=== PATIENT | female | born 1995 | race Caucasian/White ===

== ENCOUNTER → 2021-01-10 | Outpatient (CLI) | payer OTHER, SELFPAY ==
[2021-01-10 09:13] VITALS: BMI 29.9
[2021-01-11 20:07] LABS: Chlamydia By Nucleic Acid AMP Negative (Negative)
[2021-01-12 12:38] LABS: Gonococcus By Nucleic Acid AMP Negative (Negative)
[2021-01-12 16:47] LABS: HPV Reflexed? NOT INDICATED
== END | disposition home or self-care (01) ==
LOC: LABSPEC 13:03
PROVIDERS: Referring Provider Nurse Practitioner Women's Health; Visit Provider Nurse Practitioner Women's Health
DX: Z12.4 Encounter for screening for malignant neoplasm of cervix (principal); Z11.3 Encounter for screening for infections with a predominantly sexual mode of transmission
CPT/HCPCS: 87491; 87591; 88175; G0145

== ENCOUNTER → 2021-01-28 07:03 | Outpatient (CLI) | payer OTHER, SELFPAY ==
[2021-01-10 09:13] VITALS: BMI 29.9
[2021-02-01 15:54] LABS: Testosterone Free 10.4 pg/mL (0.0-4.2)
== END ==
PROVIDERS: Referring Provider Nurse Practitioner Women's Health; Visit Provider Nurse Practitioner Women's Health
DX: N97.0 Female infertility associated with anovulation (principal); Z13.29 Encounter for screening for other suspected endocrine disorder
CPT/HCPCS: 36415; 82627; 84402; 84443; 82626

== ENCOUNTER → 2021-04-23 08:06 | Outpatient (CLI) | payer OTHER, SELFPAY ==
[2021-04-23 09:09] LABS: Progesterone Level 0.69 ng/mL (See Comment)
== END ==
PROVIDERS: Referring Provider Nurse Practitioner Women's Health; Visit Provider Nurse Practitioner Women's Health
DX: N92.6 Irregular menstruation, unspecified (principal)
CPT/HCPCS: 36415; 84144

== ENCOUNTER → 2021-06-06 06:25 | Outpatient (CLI) | payer OTHER, SELFPAY ==
[2021-06-06 09:00] LABS: Progesterone Level 8.76 ng/mL (See Comment)
== END ==
LOC: LAB 06:27
PROVIDERS: PCP Family Medicine; Referring Provider Nurse Practitioner Women's Health; Visit Provider Nurse Practitioner Women's Health
DX: N97.0 Female infertility associated with anovulation (principal)
CPT/HCPCS: 36415; 84144

== ENCOUNTER 2021-09-30 07:06 | Emergency (ER) | payer OTHER, SELFPAY ==
[2021-09-30 07:07] VITALS: BP 145/97; PULSE 108; RESP 16; TEMP 36.6; O2SAT 99; BMI 27.4
--- NOTE | 2021-09-30 07:23 | EX.ED.DYSGE1 ---
HPI History of Present Illness Chief Complaint: Nausea/Vomiting Narrative Narrative: Patient with past medical history of hypothyroidism, presents with nausea and diarrhea, feels dehydrated. She states that she is nauseated but has not vomited. She had a few episodes of diarrhea without any blood in it yesterday. She is a G1, P0 at approximately 8 weeks by home test. She is taking vitamins and has an appointment with an REPACK ROOM WORKER next week. She denies any abdominal pain. No vaginal bleeding. No fevers or chills. No other symptoms. PFSH PFSH Medical History Hypothyroidism Irregular menses Home Medications levothyroxine 100 mcg tablet 100 mcg PO DAILY 01/10/21 [History Last Taken Unknown] albuterol sulfate 90 mcg/actuation aerosol inhaler 1 puff INHALATION ONCE 09/22/21 [History Last Taken Unknown] prenat.vits,sarita,irf-muiq-zvylx 1 tab PO DAILY 09/22/21 [History Last Taken Unknown] cephalexin 500 mg PO Q12 #14 cap 09/30/21 [Rx Last Taken Unknown] ondansetron 4 mg PO Q8H PRN #10 tab 09/30/21 [Rx Last Taken Unknown] Allergy/AdvReac Type Severity Reaction Status Date / Time No Known Allergies Allergy Verified 09/30/21 07:09 Family History Grandfather Heart disease Grandmother Heart disease Surgical History H/O resection of small bowel S/P tonsillectomy Social History household members: spouse current occupational status: employed current occupation: [employer] pets and animals: Yes pets and animals: dog(s) history of recent travel: No sexually active: Yes Smoking Status: Never smoker alcohol intake: current alcohol intake frequency: a few times a month details: not while substance use type: does not use what type of physical activity do you participate in: none seatbelt use: always do you feel safe at home: Yes additional social history: - Frantz ROS ROS ED ROS Narrative Constitutional: No fever, no chills. HEENT: No sore throat. No neck pain. No loss of vision. No rhinorrhea. Cardiovascular: No chest pain. No palpitations. No pedal edema. Respiratory: No cough, no shortness of breath. Abdominal: No abdominal pain. Positive nausea. No vomiting. Positive loose stool/diarrhea Genitourinary: No dysuria. No hematuria. Musculoskeletal: No myalgias. No arthralgias. Neurologic: No headaches. No dizziness. No lightheadedness. Generalized weakness. Skin: No rash. No change in color. Psychiatric: No depression. No anxiety. EXAM Physical Exam Narrative Exam Narrative: Afebrile. Vital signs noted. HEENT: Normocephalic. Atraumatic. PERRL, EOMI. Neck soft and supple. No point tenderness or step off. Moist mucous membranes. Cardiovascular: Regular rate and rhythm with intermittent tachycardia. No murmurs, rubs, or gallops appreciated. Respiratory: No tachypnea. Lungs clear to auscultation bilaterally. Gastrointestinal: Abdomen soft, nontender, with normoactive bowel sounds. No rebound or guarding. Neurological: Awake. Alert. Nonfocal, nonlateralizing. Skin: No rash. Normal color. No pallor. Musculoskeletal: No pedal edema. Full range of motion extremities. Const Vital Signs: 09/30/21 07:07 Temperature 98 F Temperature Source Temporal Pulse Rate 108 H Respiratory Rate 16 Blood Pressure 145/97 H Blood Pressure Mean 113 Pulse Ox 99 Oxygen Delivery Method Room Air MDM MDM MDM Narrative Medical decision making narrative: Patient was administered IV fluids and Zofran. She is intermittently tachycardic. I will also check a UA. Her urinalysis shows WBCs 25-50 with 1+ bacteria, but negative nitrites. I do feel given her with asymptomatic bacteria that she should be treated with antibiotics. She was written a prescription for Keflex for the next week. There are no ketones in her urine. After Zofran and approximately 500 mL of IV fluid, she states she is feeling improved. At this point in time, the rest of her fluids will be administered. She states she has a follow-up appointment with her REPACK ROOM WORKER next week. I advised her to keep this appointment. She was also given a prescription for 10 Zofran tablets. She will start a clear liquid diet and advance as tolerated. Return instructions to the emergency department were reviewed. Disposition is discharged home in stable condition. Lab Data Attestation: I reviewed the patient's lab results. Labs: Laboratory Results - last 24 hr 09/30/21 07:47 Urine Color Yellow Urine Clarity Clear Urine pH 7.0 Ur Specific [place] 1.005 Urine Protein Negative Urine Glucose (UA) Normal Urine Ketones Negative Urine Occult Blood Negative Urine Nitrite Negative Urine Bilirubin Negative Urine Urobilinogen Normal Ur Leukocyte Esterase 500 H Urine RBC 0 SEEN Urine WBC 25-50 SEEN Ur Squamous Epith Cells 0-5 SEEN Urine Bacteria 1+ Urine Mucus 0 SEEN Discharge Plan Triage Chief Complaint: Nausea/Vomiting ED Provider: Alex Cisneros Dx/Rx/DC Orders Clinical Impression: Nausea in adult, , Asymptomatic bacteriuria during Instructions: Nausea Vomit Control, : Common Questions Prescriptions: New ondansetron 4 mg tablet,disintegrating 4 mg PO Q8H PRN (Reason: nausea and vomiting) Qty: 10 RF: 0 cephalexin 500 mg capsule 500 mg PO Q12 Qty: 14 RF: 0 No Action levothyroxine [Synthroid] 100 mcg tablet 100 mcg PO DAILY RF: 0 prenat.vits,sarita,bdc-[id number] Tablet 1 tab PO DAILY RF: 0 albuterol sulfate [ProAir HFA] 90 mcg/actuation HFA aerosol inhaler 1 puff inhalation ONCE RF: 0 Primary Care Provider: Darby Sanchez Referrals: Darby Sanchez MD [Primary Care Provider] - Tonya Spencer MD [STAFF PHYSICIAN] - 10/06/21 (Keep your scheduled appointment with OBGYN) Disposition Disposition: Home, Self Care
[2021-09-30] MEDS: Ondansetron 4 MG/2 ML Vial IV (07:44)
[2021-09-30] MEDS: 0.9% Normal Saline 1,000 ML 999 ML IV (07:44)
[2021-09-30 07:50] LABS: Mucous, Urine 0 SEEN /hpf (<or=2+); Red Blood Cells-Urine 0 SEEN /hpf (0-5)
[2021-09-30 08:00] LABS: Color, Urine Yellow (Yellow); Glucose, Dipstick Normal (Normal); Ketone-Dipstick Negative (Negative); Leukocyte Esterase-Dipstick 500 /ul (Negative); Nitrite-Dipstick Negative (Negative); Occult Blood-Urine Negative /ul (Negative); Protein-Dipstick Negative (Negative); Specific Gravity, Urine 1.005 (1.002-1.030); Urine Bilirubin Dipstick Negative (Negative); Urine Clarity Clear (Clear); Urine Urobilinogen Normal (Normal)
[2021-09-30 08:06] LABS: Bacteria 1+ /hpf (None Seen); Squamous Epithelial Cells - UA 0-5 SEEN /hpf (5-10); White Blood Cells 25-50 SEEN /hpf (0-5)
[2021-09-30 08:44] VITALS: BP 118/64; PULSE 73; RESP 15; O2SAT 98
== END 2021-09-30 08:47 | disposition home or self-care (01) ==
PROVIDERS: Emergency Provider Emergency Medicine; PCP Family Medicine; Visit Provider Emergency Medicine
DX: O99.891 Other specified diseases and conditions complicating pregnancy (principal); O99.281 Endocrine, nutritional and metabolic diseases complicating pregnancy, first trimester; R11.0 Nausea; R82.71 Bacteriuria; E03.9 Hypothyroidism, unspecified; Z3A.08 8 weeks gestation of pregnancy; Z79.899 Other long term (current) drug therapy
CPT/HCPCS: 81001; 96361; 96374; 99283; J7030; J2405

== ENCOUNTER 2021-10-06 12:58 | Outpatient (CLI) | payer OTHER, SELFPAY ==
[2021-10-06 13:33] LABS: Amphetamine Urine VISTA NEGATIVE (<1000 ng/mL); Barbiturate Urine VISTA NEGATIVE (< 200 ng/mL); Benzodiazepine Urine VISTA NEGATIVE (< 200 ng/mL); Cocaine Urine VISTA NEGATIVE (< 300 ng/mL); Ecstacy Urine VISTA NEGATIVE (< 500 ng/mL); Methadone Urine VISTA NEGATIVE (< 300 ng/mL); PCP Urine VISTA NEGATIVE (< 25 ng/mL); THC Urine VISTA NEGATIVE (< 50 ng/mL); Vista UDS pH Range 7
[2021-10-10 01:06] LABS: Chlamydia By Nucleic Acid AMP Negative (Negative)
[2021-10-10 09:54] LABS: Gonococcus By Nucleic Acid AMP Negative (Negative)
[2021-10-11 12:25] LABS: HPV Reflexed? NOT INDICATED
== END 2021-10-06 23:59 | disposition short-term general hospital (02) ==
PROVIDERS: PCP Family Medicine; Visit Provider Obstetrics & Gynecology
DX: Z34.90 Encounter for supervision of normal pregnancy, unspecified, unspecified trimester (principal)
CPT/HCPCS: 80307; 87086; 87088; 87491; 87591; 88175; G0145

== ENCOUNTER 2021-10-12 06:04 | Outpatient (CLI) | payer OTHER, SELFPAY ==
[2021-10-12 07:04] LABS: Absolute Lymphocyte Count 2.15 X10^3/uL (0.83-4.51); Absolute Neutrophil Count 3.7 X10^3/uL (2.0-7.7); Basophil# 0.03 X10^3/uL; Basophil% 0.5 % (0-1); Eosinophil# 0.12 X10^3/uL; Eosinophils% 1.9 % (0-5); Hematocrit 36.2 % (37-47); Hemoglobin 12.9 g/dL (12.0-15.0); Lymphocyte # 2.15 X10^3/ul (0.83-4.51); Lymphocyte % 33.9 % (19-41); Mean Corp Hgb Conc 35.6 g/dL (32-36); Mean Corpuscular Hgb 31.3 pg (27.0-32.0); Mean Corpuscular Volume 87.9 fL (81-99); Mean Platelet Vol. 8.6 fl (6.2-12.0); Monocyte# 0.29 X10^3/uL; Monocyte% 4.6 % (0-10); NRBC Flagged by Analyzer 0 % (0-5); Neutrophil # 3.74 X10^3/uL (2.7-7.7); Neutrophil % 58.8 % (47-70); Platelet Count 296 K/mm3 (150-450); RBC Distribution Width SD 38.8 fl (35.1-43.9); Red Blood Count 4.12 M/mm3 (4.2-5.4); White Blood Count 6.4 K/mm3 (4.4-11.0)
[2021-10-12 07:11] LABS: NATERA MAILED SPECIMEN
[2021-10-12 10:44] LABS: HIV - WCH Non-Reactive (Nonreactive); Hepatitis B Surface Antigen Non-Reactive (Nonreactive); Hepatitis C Antibody Non-Reactive (Nonreactive); Rubella IgG Reactive (Nonreactive); Syphilis Antibodies Non-reactive
== END 2021-10-12 23:59 | disposition home or self-care (01) ==
LOC: LAB 06:05
PROVIDERS: PCP Family Medicine; Referring Provider Obstetrics & Gynecology; Visit Provider Obstetrics & Gynecology
DX: Z34.81 Encounter for supervision of other normal pregnancy, first trimester (principal)
CPT/HCPCS: 36415; 85025; 86703; 86762; 86780; 86803; 86850; 86900; 86901; 87340

== ENCOUNTER 2021-12-01 10:21 | Outpatient (CLI) | payer OTHER, SELFPAY ==
[2021-12-01 11:08] LABS: Thyroid Stim Hormone (TSH) 1.86 uIU/mL (0.358-3.74)
== END 2021-12-01 23:59 | disposition home or self-care (01) ==
LOC: PAVLAB 10:21
PROVIDERS: PCP Family Medicine; Referring Provider Obstetrics & Gynecology; Visit Provider Obstetrics & Gynecology
DX: E03.9 Hypothyroidism, unspecified (principal)
CPT/HCPCS: 36415; 84443

== ENCOUNTER → 2022-01-26 | Outpatient (CLI) | payer OTHER, SELFPAY ==
[2022-01-26 08:35] LABS: Absolute Lymphocyte Count 1.51 X10^3/uL (0.83-4.51); Absolute Neutrophil Count 5.5 X10^3/uL (2.0-7.7); Basophil# 0.02 X10^3/uL; Basophil% 0.3 % (0-1); Eosinophil# 0.09 X10^3/uL; Eosinophils% 1.2 % (0-5); Hematocrit 34.2 % (37-47); Hemoglobin 11.6 g/dL (12.0-15.0); Lymphocyte # 1.51 X10^3/ul (0.83-4.51); Lymphocyte % 20.4 % (19-41); Mean Corp Hgb Conc 33.9 g/dL (32-36); Mean Corpuscular Hgb 30.9 pg (27.0-32.0); Mean Corpuscular Volume 91.2 fL (81-99); Monocyte# 0.25 X10^3/uL; Monocyte% 3.4 % (0-10); NRBC Flagged by Analyzer 0 % (0-5); Neutrophil # 5.46 X10^3/uL (2.7-7.7); Neutrophil % 73.8 % (47-70); Platelet Count 249 K/mm3 (150-450); RBC Distribution Width CV 13.1 % (11.6-14.6); RBC Distribution Width SD 43.4 fl (35.1-43.9); Red Blood Count 3.75 M/mm3 (4.2-5.4); White Blood Count 7.4 K/mm3 (4.4-11.0)
[2022-01-26 09:11] LABS: Glucose Challenge Gest 1H 50g 160 mg/dL (70-140); Thyroid Stim Hormone (TSH) 2.68 uIU/mL (0.358-3.74)
== END | disposition home or self-care (01) ==
LOC: PAVLAB 08:07
PROVIDERS: PCP Family Medicine; Referring Provider Obstetrics & Gynecology; Visit Provider Obstetrics & Gynecology
DX: Z34.92 Encounter for supervision of normal pregnancy, unspecified, second trimester (principal); Z3A.21 21 weeks gestation of pregnancy
CPT/HCPCS: 36415; 82950; 84443; 85025

== ENCOUNTER 2022-01-31 06:55 | Outpatient (CLI) | payer OTHER, SELFPAY ==
[2022-01-31 09:08] LABS: Glucose GTT-Gestation. Fasting 81 mg/dL (<105)
[2022-01-31 09:28] LABS: Glucose GTT-Gestational 1 Hr 161 mg/dL (<190)
[2022-01-31 11:10] LABS: Glucose GTT-Gestational 3 Hr 139 L (<145)
[2022-01-31 11:14] LABS: Glucose GTT-Gestational 2 Hr 168 mg/dL (<165)
== END 2022-01-31 23:59 | disposition home or self-care (01) ==
LOC: LAB 06:55
PROVIDERS: PCP Family Medicine; Referring Provider Obstetrics & Gynecology; Visit Provider Obstetrics & Gynecology
DX: Z34.80 Encounter for supervision of other normal pregnancy, unspecified trimester (principal)
CPT/HCPCS: 36415; 82951; 82952

== ENCOUNTER 2022-02-21 10:15 | Outpatient (RCR) | payer OTHER, SELFPAY | END 2022-03-02 23:59 | LOC: DC 10:15 | PROVIDERS: PCP Family Medicine; Referring Provider Obstetrics & Gynecology; Visit Provider Obstetrics & Gynecology | DX: O99.810 Abnormal glucose complicating pregnancy (principal); Z3A.00 Weeks of gestation of pregnancy not specified | CPT/HCPCS: 97802 ==

== ENCOUNTER 2022-03-08 10:14 | Outpatient (RCR) | payer OTHER, SELFPAY | END 2022-04-02 23:59 | LOC: DC 10:14 | PROVIDERS: PCP Family Medicine; Referring Provider Obstetrics & Gynecology; Visit Provider Obstetrics & Gynecology | DX: O99.810 Abnormal glucose complicating pregnancy (principal); Z3A.00 Weeks of gestation of pregnancy not specified | CPT/HCPCS: 97803 ==

== ENCOUNTER → 2022-03-16 | Outpatient (CLI) | payer OTHER, SELFPAY ==
[2022-03-16 09:57] LABS: Thyroid Stim Hormone (TSH) 1.99 uIU/mL (0.358-3.74)
== END | disposition home or self-care (01) ==
LOC: PAVLAB 09:16
PROVIDERS: PCP Family Medicine; Referring Provider Nurse Practitioner Women's Health; Visit Provider Nurse Practitioner Women's Health
DX: Z13.29 Encounter for screening for other suspected endocrine disorder (principal)
CPT/HCPCS: 36415; 84443

== ENCOUNTER 2022-03-19 21:28 | Outpatient (CLI) | payer OTHER, SELFPAY ==
[2022-03-19 21:44] VITALS: TEMP 37.1; BMI 33.2
[2022-03-19 21:47] VITALS: BP 132/82; PULSE 95
[2022-03-19 21:52] VITALS: BP 128/76; PULSE 80
[2022-03-19 21:57] VITALS: BP 122/74; PULSE 88
--- NOTE | 2022-03-19 22:03 | OB.TRI.HP_ITS ---
HPI - General General Date of Admission: 03/19/22 Date of Service: 03/19/22 Chief Complaint: right leg swelling HPI Narrative BAYLEE PEREZ, is a 26 y/o @ 32 weeks 4 days who presents to L&D with right leg that is slightly swollen compared to left. She denies calf tenderness or redness. She denies shortness of breath or chest pain. Maternal Data Information RADHA Calculator Estimated Delivery Date Method Current WG Current Estimate 05/10/22 LMP (Certain) 32w 5d Other Estimates 05/10/22 Ultrasound #1 32w 5d PFSH PFSH Medical History Hypothyroidism Irregular menses Home Medications levothyroxine 100 mcg tablet (Synthroid) 100 mcg PO DAILY 01/10/21 [History Last Taken Unknown] albuterol sulfate 90 mcg/actuation aerosol inhaler (ProAir HFA) 1 puff inhalation ONCE 09/22/21 [History Last Taken Unknown] prenat.vits,sarita,pde-jzoy-kgzcm 1 tab PO DAILY 09/22/21 [History Last Taken Unknown] Allergy/AdvReac Type Severity Reaction Status Date / Time No Known Allergies Allergy Verified 03/16/22 09:03 Family History Grandfather Heart disease Grandmother Heart disease Surgical History H/O resection of small bowel S/P tonsillectomy Social History household members: spouse current occupational status: employed current occupation: [employer] pets and animals: Yes pets and animals: dog(s) history of recent travel: No sexually active: Yes Smoking Status: Never smoker alcohol intake: current alcohol intake frequency: a few times a month details: not while substance use type: does not use what type of physical activity do you participate in: none seatbelt use: always do you feel safe at home: Yes additional social history: - Frantz History 1 Elective abortions Hx Para Spontaneous abortions Hx # Term Pregnancies Ectopic pregnancies Hx # Pregnancies Multiple births # of living children Visit Details Expected Delivery Route/Plan Labor Preferences- CB/BF classes: enc labor support person: Frantz labor intervention preferences: [] pain management options preferred: epidural cut cord/dad catch: cord : pump and feed PP control planned: discussed discussed possible routes of delivery and associated risks: [] special requests: [] Plans Covid status: counseled regarding risk of covid in vs vaccination and declined vaccination Flu vaccine: counseled Tdap vaccine:given Rhogam: na LARC form signed: declined movement and labor precautions reviewed. Problem list reviewed and updated with the most current plan of care details and appropriate orders placed. Relevant counseling for the gestational age provided. Continue routine care and follow up unless otherwise noted in visit notes/problem list details OB Flowsheet Initial Weight: Not Recorded Date -?-?-?-?-?-?-?-?-?-?-?-?- EGA Weight BP Urine Prot -?-?-?-?-?-?-?-?-?-?-?-?- Glucose FHR FuHt Pres Dilation -?-?-?-?-?-?-?-?-?-?-?-?- Effaced St Visit Note 10/06/21 -?-?-?-?-?-?-?-?-?-?-?-?- 9w 1d 144/88 144/88 -?-?-?-?-?-?-?-?-?-?-?-?- 180 -?-?-?-?-?-?-?-?-?-?-?-?- SM- CRL 2 cm con s with LMP 11/03/21 -?-?-?-?-?-?-?-?-?-?-?-?- 13w 1d 163 lb 127/82 Negative -?-?-?-?-?-?-?-?-?-?-?-?- Negative 160 -?-?-?-?-?-?-?-?-?-?-?-?- JV- ultrasound r eassuring today. No complaints. q trimester TSH levels. order in. 12/01/21 -?-?-?-?-?-?-?-?-?-?-?-?- 17w 1d 163 lb 6 oz 138/86 Nega tive -?-?-?-?-?-?-?-?-?-?-?-?- Negative 150 -?-?-?-?-?-?-?-?-?-?-?-?- SM- no vb lof cr maping reviewed labs check thyroid today 12/29/21 -?-?-?-?-?-?-?-?-?-?-?-?- 21w 1d 169 lb 130/82 -?-?-?-?-?-?-?-?-?-?-?-?- 150 21 -?-?-?-?-?-?-?-?-?-?-?-?- SM- no vb lof go od fm no regular ctx 01/26/22 -?-?-?-?-?-?-?-?-?-?-?-?- 25w 1d 173 lb 114/80 -?-?-?-?-?-?-?-?-?-?-?-?- 150 25 -?-?-?-?-?-?-?-?-?-?-?-?- Sm- no vb lof go od fm n oregular ctx ordered 3 hr gtt 02/16/22 -?-?-?-?-?-?-?-?-?-?-?-?- 28w 1d 175 lb 6 oz 130/70 Nega tive -?-?-?-?-?-?-?-?-?-?-?-?- Negative 151 28 -?-?-?-?-?-?-?-?-?-?-?-?- JV- pt passed 3 hr but only by one point. Encouraging a healthy diet and will still order nutrition consult to discuss one time or as needed to aid in healthy choices. 03/02/22 -?-?-?-?-?-?-?-?--?-?-?-?- 30w 1d 176 lb 118/72 Negative -?-?-?-?-?-?-?-?-?-?-?-?- Negative 130 31 -?-?-?-?-?-?-?-?-?-?-?-?- SM- no vb lof go od fm no regular ctx baby shower next weekend! larc signed 03/16/22 -?-?-?-?-?-?-?-?-?-?-?-?- 32w 1d 180 lb 6 oz 126/70 Nega tive -?-?-?-?-?-?-?-?-?-?-?-?- Negative 156 32 -?-?-?-?-?-?-?-?-?-?-?-?- MH-NO VB, LOF. G ood FM. TSh today ROS Constitutional Constitutional: Reports systems reviewed and no addt'l complaints, except as documented Gastrointestinal Gastrointestinal: Denies bloating, constipation, cramping, diarrhea, nausea or vomiting Genitourinary Genitourinary: Reports other Details: Denies vaginal odor, vaginal bleeding, or vaginal discharge ; Denies difficulty urinating or flank pain Physical Exam HEENT normocephalic Resp normal respiratory effort and normal air movement no CVA tenderness Extremity normal to inspection General Extremity: edema bilateral (trace ) NST FHR Rate Baby A Baseline: 120 Variability:: Moderate Accelerations:: 15 x 15 Decelerations:: None NST Reactive:: Yes FHR Category:: Category I Assessment & Plan (1) Abnormal glucose affecting : COMMENT: passed3 hour gtt- but only by 1 point. consulting nutrition to help make healthy choices. (2) Hypothyroidism: COMMENT: synthroid. dr holland manages. tsh q trimester, nl TSH 03/16 (3) Asthma: COMMENT: albuterol PRN. mild intermittent (4) : QUALIFIERS: Weeks of gestation: 30 weeks Qualified Code(s): Z3A.30 - 30 weeks gestation of COMMENT: Carrier screen neg at [facility] for pt and spouse. nlNIPT. declined afp. 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 if still swollen or tender in the am,. she is to call the office for us to order outpatient doppler study. Charges/Coding Multi Select Codes Visit Charges Office Visit/Consults: 93751 OV L3 Est Urinary/Genital Urinary/Genital CPT Codes: 96870-42 non-stress test Interp
== END 2022-03-19 22:25 | disposition home or self-care (01) ==
LOC: WPOUT 21:33 → WP 21:34
PROVIDERS: PCP Family Medicine; Referring Provider Obstetrics & Gynecology; Visit Provider Obstetrics & Gynecology
DX: O99.283 Endocrine, nutritional and metabolic diseases complicating pregnancy, third trimester (principal); O99.513 Diseases of the respiratory system complicating pregnancy, third trimester; M79.89 Other specified soft tissue disorders; E03.9 Hypothyroidism, unspecified; J45.909 Unspecified asthma, uncomplicated; Z3A.30 30 weeks gestation of pregnancy
CPT/HCPCS: 59025; 59050; 99218; G0378

== ENCOUNTER → 2022-04-13 | Outpatient (CLI) | payer OTHER, SELFPAY | END | disposition home or self-care (01) | LOC: LABSPEC 04-18 06:49 | PROVIDERS: PCP Family Medicine; Referring Provider Obstetrics & Gynecology; Visit Provider Obstetrics & Gynecology | DX: O99.810 Abnormal glucose complicating pregnancy (principal); Z3A.00 Weeks of gestation of pregnancy not specified | CPT/HCPCS: 87077; 87081; 87186 ==

== ENCOUNTER 2022-04-27 11:15 | Inpatient (IN) | payer OTHER, SELFPAY ==
[2022-04-27] VITALS (10 sets, daily range): BP systolic 125–158; BP diastolic 77–96; PULSE 90–102; TEMP 37.1–37.6; BMI 34.0
[2022-04-27 09:53] LABS: Absolute Lymphocyte Count 1.47 X10^3/uL (0.83-4.51); Absolute Neutrophil Count 5.7 X10^3/uL (2.0-7.7); Basophil# 0.02 X10^3/uL; Basophil% 0.3 % (0-1); Eosinophil# 0.05 X10^3/uL; Eosinophils% 0.7 % (0-5); Hematocrit 36.4 % (37-47); Hemoglobin 12.6 g/dL (12.0-15.0); Lymphocyte # 1.47 X10^3/ul (0.83-4.51); Lymphocyte % 19.1 % (19-41); Mean Corp Hgb Conc 34.6 g/dL (32-36); Mean Corpuscular Hgb 31.5 pg (27.0-32.0); Mean Platelet Vol. 9.9 fl (6.2-12.0); Monocyte# 0.42 X10^3/uL; Monocyte% 5.5 % (0-10); NRBC Flagged by Analyzer 0 % (0-5); Neutrophil # 5.67 X10^3/uL (2.7-7.7); Neutrophil % 73.7 % (47-70); Platelet Count 228 K/mm3 (150-450); RBC Distribution Width CV 13.6 % (11.6-14.6); RBC Distribution Width SD 45.3 fl (35.1-43.9); White Blood Count 7.7 K/mm3 (4.4-11.0)
[2022-04-27 10:04] LABS: Protein, Urine (Random) 14.5 mg/dL (<11.9); Protein:Creat Ratio 157 mg/g CRE (0-200)
[2022-04-27 10:14] LABS: ALB/GLOB Ratio 0.7 RATIO (0.9-2.4); AST(SGOT) 10 U/L (15-37); Alanine Aminotransfer ALT/SGPT 17 U/L (13-56); Albumin, Serum 2.5 g/dL (3.2-5.0); Alkaline Phosphatase 116 U/L (45-117); Anion Gap 8 (5-15); BUN 8 mg/dL (7-18); BUN/Creat Ratio 14.6 RATIO (10-20); Calcium,Total 8.9 mg/dL (8.5-10.1); Chloride 108 mmol/L (98-107); Creatinine, Serum 0.55 mg/dL (0.55-1.02); EST Glomerular Filtration Rate 141 mL/min (>60); Est Glom Filt Rate - Afr Amer 171 mL/min (>60); Estimated Creatinine Clearance 121.52 ml/min; Globulin 3.7 g/dL (2.2-4.2); Glucose 91 mg/dL (74-106); Protein, Total 6.2 g/dL (6.4-8.2); Sodium Level 138 mmol/L (136-145)
[2022-04-27] MEDS: Lactated Ringers 1,000 ML 50 ML IV ×2 (12:40→22:27)
[2022-04-27] MEDS: miSOPROStol 25 MCG TABLET VAGINAL ×3 (14:20→23:22)
--- NOTE | 2022-04-27 17:08 | HP.PCM.OB_ITS ---
HPI - General General Date of Admission: 04/27/22 HPI Narrative BAYLEE PEREZ, is a 26 F who presentsfor elevated bps and upon further evaluation bps are WNL but a prolonged decel with a contraction occured upon evaluation so decision to keep her was made Maternal Data Information RADHA Calculator Estimated Delivery Date Method Current WG Current Estimate 05/10/22 LMP (Certain) 38w 1d Other Estimates 05/10/22 Ultrasound #1 38w 1d PFS PFS Medical History (Updated 04/27/22 @ 13:49 by Brielle Moffett) Anxiety Headache History of blood transfusion Hypothyroidism Irregular menses Home Medications levothyroxine 100 mcg tablet (Synthroid) 112 mcg PO DAILY 01/10/21 [History Last Taken Unknown] albuterol sulfate 90 mcg/actuation aerosol inhaler (ProAir HFA) 1 puff inhalation ONCE 09/22/21 [History Last Taken Unknown] prenat.vits,sarita,mam-agva-qhhgk 1 tab PO DAILY 09/22/21 [History Last Taken Unknown] Allergy/AdvReac Type Severity Reaction Status Date / Time No Known Allergies Allergy Verified 04/27/22 08:51 Family History Grandfather Heart disease Grandmother Heart disease Surgical History H/O resection of small bowel S/P tonsillectomy Social History household members: spouse current occupational status: employed current occupation: [employer] pets and animals: Yes pets and animals: dog(s) history of recent travel: No sexually active: Yes Smoking Status: Never smoker alcohol intake: current alcohol intake frequency: a few times a month details: not while substance use type: does not use what type of physical activity do you participate in: none seatbelt use: always do you feel safe at home: Yes additional social history: - Frantz History 1 Elective abortions Hx Para Spontaneous abortions Hx # Term Pregnancies Ectopic pregnancies Hx # Pregnancies Multiple births # of living children Visit Details Expected Delivery Route/Plan Labor Preferences- CB/BF classes: enc labor support person: Frantz labor intervention preferences: [] pain management options preferred: epidural cut cord/dad catch: cord : pump and feed PP control planned: discussed discussed possible routes of delivery and associated risks: [] special requests: [] Plans Covid status: counseled regarding risk of covid in vs vaccination and declined vaccination Flu vaccine: counseled Tdap vaccine:given Rhogam: na LARC form signed: declined movement and labor precautions reviewed. Problem list reviewed and updated with the most current plan of care details and appropriate orders placed. Relevant counseling for the gestational age provided. Continue routine care and follow up unless otherwise noted in visit notes/problem list details OB Flowsheet Initial Weight: Not Recorded Date -?-?-?-?-?-?-?-?-?-?-?-?- EGA Weight BP Urine Prot -?-?-?-?-?-?-?-?-?-?-?-?- Glucose FHR FuHt Pres Dilation -?-?-?-?-?-?-?-?-?-?-?-?- Effaced St Visit Note 10/06/21 -?-?-?-?-?-?-?-?-?-?-?-?- 9w 1d 144/88 144/88 -?-?-?-?-?-?-?-?-?-?-?-?- 180 -?-?-?-?-?-?-?-?-?-?-?-?- SM- CRL 2 cm con s with LMP 11/03/21 -?-?-?-?-?-?-?-?-?-?-?-?- 13w 1d 163 lb 127/82 Negative -?-?-?-?-?-?-?-?-?-?-?-?- Negative 160 -?-?-?-?-?-?-?-?-?-?-?-?- JV- ultrasound r eassuring today. No complaints. q trimester TSH levels. order in. 12/01/21 -?-?-?-?-?-?-?--?-?-?-?-?- 17w 1d 163 lb 6 oz 138/86 Nega tive -?-?-?-?-?-?-?-?-?-?-?-?- Negative 150 -?-?-?-?-?-?-?-?-?-?-?-?- SM- no vb lof cr maping reviewed labs check thyroid today 12/29/21 -?-?-?-?-?-?-?-?-?-?-?-?- 21w 1d 169 lb 130/82 -?-?-?-?-?-?-?-?-?-?-?-?- 150 21 -?-?-?-?-?-?-?-?-?-?-?--?- SM- no vb lof go od fm no regular ctx 01/26/22 -?-?-?-?-?-?-?-?-?-?-?-?- 25w 1d 173 lb 114/80 -?-?-?-?-?-?-?-?-?-?-?-?- 150 25 -?-?-?-?-?-?-?-?-?-?-?-?- Sm- no vb lof go od fm n oregular ctx ordered 3 hr gtt 02/16/22 -?-?-?-?-?-?-?-?-?-?-?-?- 28w 1d 175 lb 6 oz 130/70 Nega tive -?-?-?-?-?-?-?-?-?-?-?-?- Negative 151 28 -?-?-?-?-?-?-?-?-?-?-?-?- JV- pt passed 3 hr but only by one point. Encouraging a healthy diet and will still order nutrition consult to discuss one time or as needed to aid in healthy choices. 03/02/22 -?-?-?-?-?-?-?-?-?-?-?-?- 30w 1d 176 lb 118/72 Negative -?-?-?-?-?-?-?-?-?--?-?-?- Negative 130 31 -?-?-?-?-?-?-?-?-?-?-?-?- SM- no vb lof go od fm no regular ctx baby shower next weekend! larc signed 03/16/22 -?-?-?-?--?-?-?-?-?-?-?-?- 32w 1d 180 lb 6 oz 126/70 Nega tive -?-?-?-?-?-?-?-?-?-?-?-?- Negative 156 32 -?-?-?-?-?-?-?-?-?-?-?-?- MH-NO VB, LOF. G ood FM. TSh today 03/30/22 -?-?-?-?-?-?-?-?-?-?-?-?- 34w 1d 181 lb 8 oz 126/84 Nega tive -?-?-?-?-?-?-?-?-?-?-?-?- Negative 141 35 -?-?-?-?-?--?-?-?-?-?-?-?- JV- JV-no lof, v aginal bleeding , or dec fm. no complaints. 04/13/22 -?-?-?-?-?-?-?-?-?-?-?-?- 36w 1d 187 lb 118/62 Negative -?-?-?--?-?-?-?-?-?-?-?-?- Negative 140 36 Cephalic 0 .5 -?-?-?-?-?-?-?-?-?-?-?-?- SM- no vb lof go od fm no regular ctx gbs done 04/20/22 -?-?-?-?-?-?-?-?-?-?-?-?- 37w 1d 186 lb 110/62 Negative -?-?-?-?-?-?-?-?-?-?-?-?- Negative 150 37 Cephalic 0 .5 -?-?-?-?-?-?-?-?-?-?-?-?- Sm- no vb lof go od fm no regular ctx 04/27/22 -?-?-?-?-?-?-?-?-?-?-?-?- 38w 1d 188 lb 6 oz 140/80 Nega tive -?-?-?-?-?-?-?-?-?-?-?-?- Negative 155 38 Cephalic 0 .5 -?-?-?-?-?-?-?-?-?-?-?-?- -3 JV- bp's 140's-160's/80's90's. no symptoms 04/27/22 -?-?-?-?-?-?-?-?-?-?-?-?- 38w 1d 186 lb 132/80 130/86 125/82 127/80 128/80 142/91 -?-?-?-?-?-?-?-?-?-?-?-?- -?-?-?-?-?-?-?-?-?-?-?-?- NST FHR Rate Baby A Baseline: 130 Variability:: Moderate Accelerations:: 15 x 15 Decelerations:: Prolonged (initially then good recovery and now no decels) NST Reactive:: Yes FHR Category:: Category I Uterine Activity:: irregular ROS Constitutional Constitutional: Reports systems reviewed and no addt'l complaints, except as documented Eyes Eyes: Denies change in vision ENT HEENT: Reports systems reviewed and no addt'l complaints, except as documented; Denies headache(s) Cardiovascular Cardiovascular: Reports systems reviewed and no addt'l complaints, except as documented; Denies chest pain or dyspnea Respiratory/Chest Respiratory/Chest: Reports systems reviewed and no addt'l complaints, except as documented Gastrointestinal Gastrointestinal: Reports systems reviewed and no addt'l complaints, except as documented; Denies abdominal pain Genitourinary Genitourinary: Reports systems reviewed and no addt'l complaints, except as documented, contractions Details: present (irregular) and movement Details: present; Denies dysuria or genital lesions Musculoskeletal Musculoskeletal: Reports systems reviewed and no addt'l complaints, except as documented Neurologic Neurologic: Reports systems reviewed and no addt'l complaints, except as documented Endocrine Endocrinology: Reports systems reviewed and no addt'l complaints, except as doc umented Vital Signs Vital Signs Vital Signs: 04/27/22 09:53 04/27/22 09:53 04/27/22 10:09 Temperature Temperature Source Pulse Rate 102 H Blood Pressure 132/80 H 130/86 H BP Systolic 132 130 BP Diastolic 80 86 04/27/22 10:09 04/27/22 09:49 04/27/22 09:49 Temperature 98.8 F Temperature Source Temporal Pulse Rate 90 Blood Pressure BP Systolic BP Diastolic 04/27/22 10:23 04/27/22 10:23 04/27/22 10:38 Temperature Temperature Source Pulse Rate 92 Blood Pressure 125/82 H 127/80 H BP Systolic 125 127 BP Diastolic 82 80 04/27/22 10:38 04/27/22 10:53 04/27/22 10:53 Temperature Temperature Source Pulse Rate 92 93 Blood Pressure 128/80 H BP Systolic 128 BP Diastolic 80 04/27/22 13:42 04/27/22 13:42 04/27/22 13:41 Temperature Temperature Source Temporal Pulse Rate 93 Blood Pressure 142/91 H BP Systolic 142 BP Diastolic 91 04/27/22 13:41 Temperature 99.7 F H Temperature Source Pulse Rate Blood Pressure BP Systolic BP Diastolic Weight Weight: 186 lb Body Mass Index (BMI) 34.0 Physical Exam Const alert, oriented x3, no apparent distress and healthy appearing HEENT normocephalic and moist oral mucous membranes Head and Scalp: atraumatic Neck full ROM, no lymphadenopathy, supple and thyroid normal General: trachea midline Lymph Lymphatic: no lymphadenopathy noted Chest inspection of chest normal Resp normal respiratory effort Cardio regular rate GI normal to inspection, nondistended, normoactive bowel sounds, soft to palpation and non-tender Inspection: gravid external exam normal Manual OB Exam: estimated gestational size appropriate, presentation cephalic, dilated, effaced and station Extremity normal to inspection General Extremity: Negative for edema Skin no rashes or lesions noted Neuro no focal motor deficits and deep tendon reflexes 2+ bilaterally Motor Exam: strength 5/5 throughout and clonus absent Psych mental status grossly normal Labs Labs Labs: Blood Type O POSITIVE Antibody Screen NEGATIVE Hct 36.4 % (37-47) L Hgb 12.6 g/dL (12.0-15.0) Syphilis Total Ab Non-reactive Rubella IgG Antibody Reactive (Nonreactive) Hep Bs Antigen Non-Reactive (Nonreactive) Chlamydia DNA ([facility]) Negative (Negative) Neisseria gonorrhoeae DNA ([facility]) Negative (Negative) HIV 1&2 Antibody Non-Reactive (Nonreactive) Glucose 1 Hr 50 gm 160 mg/dL (70-140) H Miscellaneous Test Assessment & Plan (1) Positive GBS test: COMMENT: PCN at delivery (2) Abnormal glucose affecting : COMMENT: passed3 hour gtt- but only by 1 point. consulting nutrition to help make healthy choices. (3) Hypothyroidism: COMMENT: synthroid. dr holland manages. tsh q trimester, nl TSH 03/16 (4) Asthma: COMMENT: albuterol PRN. mild intermittent (5) : QUALIFIERS: Weeks of gestation: 38 weeks Qualified Code(s): Z3A.38 - 38 weeks gestation of COMMENT: Carrier screen neg at [facility] for pt and spouse. nlNIPT. declined afp. 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 GBS positive plan IV PCN. Management of any complications: none I have reviewed the [facility] and made any clinically relevant updates.
[2022-04-27] MEDS: LACTATED RINGERS 500 ML 999 ML IV (22:28)
[2022-04-28] VITALS (44 sets, daily range): BP systolic 115–159; BP diastolic 63–94; PULSE 73–107; TEMP 36.6–37.2; O2SAT 81–99
[2022-04-28] MEDS: miSOPROStol 25 MCG TABLET VAGINAL (03:37)
[2022-04-28] MEDS: 0.9% Normal Saline Single 100 ML IV.SOLN. INTRA-UTER (09:08)
[2022-04-28] MEDS: Oxytocin 30 units/NS 500 ml 30 UNITS/500 ML IV.SOLN IV (09:18)
--- NOTE | 2022-04-28 11:39 | PCM.PN.BLA ---
Progress Note fb pit after cytotec overnight doing well, epi PRN. arom PRN cat i tracing but some decels overnight
[2022-04-28] MEDS: LACTATED RINGERS 500 ML 999 ML IV ×2 (12:53→21:02)
[2022-04-28] MEDS: fentaNYL-bupivacaine (epidural) 100 ML BAG EPIDURAL ×2 (13:41→18:20)
[2022-04-28] MEDS: Penicillin G 3,000,000 Units 50 ML 100 UNITS IV ×2 (15:08→19:34)
[2022-04-28] MEDS: Lactated Ringers 1,000 ML 200 ML IV ×2 (15:45→21:22)
[2022-04-28] MEDS: Ondansetron 4 MG/2 ML Vial IV (17:19)
[2022-04-28] MEDS: Acetaminophen 500 MG Tablet PO (17:20)
[2022-04-28] MEDS: 0.9% Saline Lock 10 ML Syringe IV (17:20)
--- NOTE | 2022-04-28 21:29 | OP.PCM_ITS ---
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 nlNIPT. declined afp. anatomy nl (4) Asthma: COMMENT: albuterol PRN. mild intermittent (5) Hypothyroidism: COMMENT: synthroid. dr holland manages. tsh q trimester, nl TSH 03/16 (6) Abnormal glucose affecting : COMMENT: passed3 hour gtt- but only by 1 point. consulting nutrition to help make healthy choices. (7) Positive GBS test: COMMENT: PCN at delivery (8) Prolonged heart deceleration: COMMENT: plan IOL Maternal Data Information RADHA Calculator Estimated Delivery Date Method Current WG Current Estimate 05/10/22 LMP (Certain) 38w 2d Other Estimates 05/10/22 Ultrasound #1 38w 2d Vaginal Delivery Operative Information Date of Procedure: 04/28/22 Pre-Operative Diagnosis: IOL decel Post-Operative Diagnosis: same Surgery / Procedure Performed: Spontaneous Vaginal Delivery Type of Anesthesia: Epidural Special Medications: none Estimated Blood Loss: 300 Fluids Replaced: crystalloid Findings Description of Procedure: Patient began pushing and delivered the head in the TITUS presentation. The head was delivered atraumatically and a loose nuchal cord ?1 was identified and the infant delivered through without complication. The anterior and posterior shoulders delivered without complication followed by the rest of the infant and the was placed on the maternal abdomen. Delayed cord clamping was employed for approximately 60 seconds. Cord was clamped and cut and gentle traction was applied to the cord and the placenta delivered spontaneously immediately following it was noted to be intact with three-vessel cord. The perineum and vagina were inspected and noted to have a second degree laceration repaired in the usual fashion with 3-0 rapide. EBL was 300. Patient and infant tolerated delivery well. Presentation: TITUS Amniotic Membrane Rupture Type: Spontaneous Amniotic Fluid Description: Clear Placental Delivery Description: Spontaneous Placenta Disposition: [facility] Cord Vessel Description: 3 Vessels Cord Entanglement: None Delayed Cord Clamping: Yes Post Vaginal Delivery Medications Given After Delivery: IV Pitocin Episiotomy Description: None Laceration: Perineal Extension/lac and 2nd degree Complication Complications: None Procedures Urinary/Genital [id number]: [id number] Vaginal Delivery [facility]
--- NOTE | 2022-04-28 21:30 | DCINST_ITS ---
Discharge Instructions Diet Discharge Diet: No restrictions Activity Discharge Activity: Return to Normal Activity, May Drive, May Shower and May Take a Tub Bath (in 4 weeks) May resume sexual activity in: 6-8 weeks (after seen by OB provider) Weight Bearing Status: Full weight bearing Lifting Restrictions: none Dressing / Incision Call your doctor if you observe: Fever of 101 or Higher, Inability to urinate, Using more than 1 pad per hour (for more than 2 hours in a row or more), Shortness of breath, Dizziness, Chest pain and - (headache not controlled with tylenol, change in vision) Follow Up Care When: in 6 weeks for visit, call the office to make the appointment. If you had elevated blood pressures call the office to be seen within 1 week. Test Results: Test results from this visit will be discussed in further detail at your follow- up appointment, if applicable. Discharge Plan Admission Admit Date/Time: 04/27/22 11:15 Attending Provider: Tonya Spencer Primary Care Provider: Darby Sanchez Discharge Orders/Prescriptions Prescriptions: No Action levothyroxine [Synthroid] 100 mcg tablet 112 mcg PO DAILY prenat.vits,sarita,[id number] Tablet 1 tab PO DAILY albuterol sulfate [ProAir HFA] 90 mcg/actuation HFA aerosol inhaler 1 puff inhalation ONCE Referrals / Follow Up: Darby Sanchez MD [Primary Care Provider] - Disposition Disposition (needs filled in before D/C Order can be placed): Home, Self Care
[2022-04-28] MEDS: Oxytocin 30 units/NS 500 ml 30 UNITS/500 ML IV.SOLN 334 UNITS IV (23:01)
[2022-04-29] VITALS (31 sets, daily range): BP systolic 118–150; BP diastolic 65–94; PULSE 73–105; RESP 14–17; TEMP 36.4–37.2; O2SAT 94–99
[2022-04-29] MEDS: Naproxen 500 MG Tablet PO ×3 (00:25→23:28)
[2022-04-29] MEDS: Levothyroxine 112 MCG Tablet PO (08:54)
[2022-04-29] MEDS: Senna/Docusate Sodium 1 Tablet PO (08:54)
--- NOTE | 2022-04-29 09:40 | PCM.PN.OB ---
Subjective Subjective Patient doing well without complaints. Tolerating PO. Ambulating and voiding without difficulty. feeding well. Denies chest pain, shortness of breath, calf pain/swelling, fevers, chills, lightheadedness. Objective Data Objective Data Vital Signs: Vital Signs Temp Pulse Resp BP Pulse Ox O2 Del Method 97.5 F L 77 16 136/89 H 97 Room Air 04/29/22 09:24 04/29/22 09:24 04/29/22 09:24 04/29/22 09:24 04/29/22 09:24 04/29/22 09:24 Oxygen Delivery Method Room Air Weight: 186 lb Body Mass Index (BMI) 34.0 Intake & Output: Intake and Output for Last 24 Hours 04/27/22 04/28/22 04/29/22 23:59 23:59 23:59 Intake Total 54.17 / 54.17 5345.60 / 5345.60 331.22 / 331.22 Output Total 2300 / 2300 1100 / 1100 Balance 54.17 / 54.17 3045.60 / 3045.60 -768.78 / -768.78 Lab / Micro Data Result Diagrams: 04/27/22 09:40 04/27/22 09:40 Micro: Microbiology 04/27/22 17:08 Nasal Secretion SARS-CoV-2 Antigen (Rapid) - Final ROS Constitutional Constitutional: Reports systems reviewed and no addt'l complaints, except as documented Cardiovascular Cardiovascular: Reports systems reviewed and no addt'l complaints, except as documented Respiratory/Chest Respiratory/Chest: Reports systems reviewed and no addt'l complaints, except as documented Gastrointestinal Gastrointestinal: Reports systems reviewed and no addt'l complaints, except as documented Physical Exam Const alert, oriented x3 and no apparent distress HEENT Head and Scalp: atraumatic Resp normal respiratory effort GI soft to palpation and non-tender Bimanual Exam - Vag & Uterus: uterus non-tender Uterus Palpation: uterus fundus firm (below Umbilicus) Assessment & Plan (1) Vaginal delivery: COMMENT: SM boy 38 iol decel (2) Asthma: COMMENT: albuterol PRN. mild intermittent (3) Hypothyroidism: COMMENT: synthroid. dr holland manages. tsh q trimester, nl TSH 03/16 PLAN: Plan s/p PPD # 1 1. routine post delivery care 2. breast feeding- support given 3. rh positive 4. rubella immune
--- NOTE | 2022-04-30 03:52 | PCM.PN.OB ---
Subjective Subjective Patient doing well without complaints. Tolerating PO. Ambulating and voiding without difficulty. feeding well. Denies chest pain, shortness of breath, calf pain/swelling, fevers, chills, lightheadedness. Objective Data Objective Data Vital Signs: Vital Signs Temp Pulse Resp BP Pulse Ox O2 Del Method 98 F 90 16 123/78 H 97 Room Air 04/29/22 23:18 04/29/22 23:18 04/29/22 23:18 04/29/22 23:18 04/29/22 23:18 04/29/22 23:18 Oxygen Delivery Method Room Air Weight: 186 lb Body Mass Index (BMI) 34.0 Intake & Output: Intake and Output for Last 24 Hours 04/28/22 04/29/22 04/30/22 23:59 23:59 23:59 Intake Total 5345.60 / 5345.60 331.22 / 331.22 Output Total 2300 / 2300 1600 / 1600 Balance 3045.60 / 3045.60 -1268.78 / -1268.78 Lab / Micro Data Result Diagrams: 04/27/22 09:40 04/27/22 09:40 Micro: Microbiology 04/27/22 17:08 Nasal Secretion SARS-CoV-2 Antigen (Rapid) - Final ROS Constitutional Constitutional: Reports systems reviewed and no addt'l complaints, except as documented Cardiovascular Cardiovascular: Reports systems reviewed and no addt'l complaints, except as documented Respiratory/Chest Respiratory/Chest: Reports systems reviewed and no addt'l complaints, except as documented Gastrointestinal Gastrointestinal: Reports systems reviewed and no addt'l complaints, except as documented Physical Exam Const alert, oriented x3 and no apparent distress HEENT Head and Scalp: atraumatic Resp normal respiratory effort GI soft to palpation and non-tender Bimanual Exam - Vag & Uterus: uterus non-tender Uterus Palpation: uterus fundus firm (below Umbilicus) Assessment & Plan (1) Vaginal delivery: COMMENT: SM boy 38 iol decel (2) Asthma: COMMENT: albuterol PRN. mild intermittent (3) Hypothyroidism: COMMENT: synthroid. dr holland manages. tsh q trimester, nl TSH 03/16 PLAN: Plan s/p PPD # 2 1. routine post delivery care 2. breast feeding- support given 3. rh positive 4. rubella immune
[2022-04-30 04:21] VITALS: BP 116/69; PULSE 73; RESP 14; TEMP 36.3; O2SAT 95
[2022-04-30 07:44] VITALS: BP 120/78; PULSE 69; RESP 18; TEMP 36.6; O2SAT 97
--- NOTE | 2022-05-04 21:51 | PCM.DC.SUM ---
Providers Date of Admission: 04/27/22 Primary Care Physician: Dr. Darby Sanchez MD Reason For Visit: VAGINAL DELIVERY Diagnosis Discharge Diagnosis (1) Vaginal delivery: Status: Acute Code(s): O80 - Encounter for full-term uncomplicated delivery (2) Asthma: Status: Acute Code(s): J45.909 - Unspecified asthma, uncomplicated (3) Hypothyroidism: Status: Acute Code(s): E03.9 - Hypothyroidism, unspecified Plan s/p PPD # 2 1. routine post delivery care 2. breast feeding- support given 3. rh positive 4. rubella immune Medications at Discharge Home Medications levothyroxine 100 mcg tablet (Synthroid) 112 mcg PO DAILY 01/10/21 albuterol sulfate 90 mcg/actuation aerosol inhaler (ProAir HFA) 1 puff inhalation ONCE 09/22/21 prenat.vits,sarita,bny-xcrg-cmxlr 1 tab PO DAILY 09/22/21 Hospital Course Summary of Care Provided Hospital Course: prsented for IOL secondary to decel and proceeded to deliver vaginally without complication had a routine recovery and stable for discharge to home ppd 2 Weight / BMI Weight Weight: 186 lb Body Mass Index (BMI) 34.0 ABG / Lab / Microbiology Data Result Diagrams: 04/27/22 09:40 04/27/22 09:40 Microbiology: Microbiology 04/27/22 17:08 Nasal Secretion SARS-CoV-2 Antigen (Rapid) - Final D/C Instructions Discharge Diet: No restrictions Discharge Activity: May Not Drive (for 2 weeks or while taking narcotic pain medications.), May Shower and May Take a Tub Bath (in 7 days) May shower in (days): 0 May resume sexual activity in: 6-8 weeks (after seen by OB provider) Weight Bearing Status: Full weight bearing Call your doctor if your incision/area has: Continuous Slow Oozing, Sudden Increased Bleeding, Increased Pain/ Swelling, Increased Redness and Foul Smelling Discharge Call your doctor if you observe: Fever of 101 or Higher, Inability to urinate, Using more than 1 pad per hour (for more than 2 hours in a row or more), Shortness of breath, Dizziness, Chest pain and - (headache not controlled with tylenol, change in vision) Suture Line Care: Avoid Pulling/Pushing and Avoid Pinching/Bending Please Follow Up With: Tonya Spencer MD When: in 6 weeks for visit, call the office to make the appointment. If you had elevated blood pressures call the office to be seen within 1 week. Meaningful Use Info Meaningful Use Diagnoses (Choose all that apply): None applicable Discharge Plan Admission Admit Date/Time: 04/27/22 11:15 Attending Provider: Tonya Spencer Primary Care Provider: Darby Sanchez Discharge Orders/Prescriptions Prescriptions: No Action levothyroxine [Synthroid] 100 mcg tablet 112 mcg PO DAILY prenat.vits,sarita,[id number] Tablet 1 tab PO DAILY albuterol sulfate [ProAir HFA] 90 mcg/actuation HFA aerosol inhaler 1 puff inhalation ONCE Referrals / Follow Up: Darby Sanchez MD [Primary Care Provider] - Disposition Disposition (needs filled in before D/C Order can be placed): Home, Self Care
== END 2022-04-30 09:45 | disposition home or self-care (01) | DRG 807 ==
LOC: WPOUT 11:16 → WP 11:18
PROVIDERS: Obstetrics & Gynecology; Admitting Provider Obstetrics & Gynecology; PCP Family Medicine; Referring Provider Obstetrics & Gynecology; Visit Provider Obstetrics & Gynecology
DX: O76 Abnormality in fetal heart rate and rhythm complicating labor and delivery (principal); Z37.0 Single live birth; E03.9 Hypothyroidism, unspecified; J45.909 Unspecified asthma, uncomplicated; O99.52 Diseases of the respiratory system complicating childbirth; O70.1 Second degree perineal laceration during delivery; O99.284 Endocrine, nutritional and metabolic diseases complicating childbirth; O69.81X0 Labor and delivery complicated by cord around neck, without compression, not applicable or unspecified; O99.824 Streptococcus B carrier state complicating childbirth; Z3A.38 38 weeks gestation of pregnancy
CPT/HCPCS: 59025; 59050; 80053; 82570; 84156; 85025; 86850; 86900; 86901; 87811; 99218; J7120; A4216; G0378; J2405

== ENCOUNTER → 2023-10-24 | Outpatient (CLI) | payer BC, SELFPAY ==
--- OUTSIDE RECORDS SUMMARY | 2023-10-24 08:51 | XMS RPT_ITS | CCD ---
Author Name Unknown Address [address] [place] [address] Organization [facility] Care Team Providers Care Network Developer Name Role Phone Basilio Pierre Unavailable Unavailable Strong, Adam Unavailable Unavailable Strong, Adam Unavailable Unavailable Strong, Adam Unavailable Unavailable Strong, Adam Unavailable Unavailable Tanner Servin Unavailable Unavailable RIMA CHEN Unavailable Unavailable Strong, Adam Unavailable Unavailable Strong, Adam Unavailable Unavailable Problems Active Problems Problem Classification Problem Date Documented Da te Episodic/Chronic Unclassified (2 sources) Contact with other sharp object(s), not elsewhere classified, initial encounter; Translations: [Contact with other sharp object(s), NEC, initial encounter] Onset: 04-11-2017 Past or Other Problems Problem Classification Problem Date Documented Da te Episodic/Chronic Coagulation and hemorrhagic disorders (2 sources) Allergic purpura; Translations: [Allergic purpura] Onset: 11-16-2017 Episodic Fever of unknown origin (2 sources) Fever, unspecified; Translations: [Fever, unspecified] Onset: 11-16-2017 Episodic Headache, including migraine (2 sources) Headache; Translations: [Headache] Onset: 11-16-2017 Episodic Malaise and fatigue (2 sources) Other fatigue; Translations: [Other fatigue] Onset: 11-16-2017 Episodic Nonmalignant breast conditions (2 sources) Mastodynia; Translations: [Mastodynia] Onset: 10-30-2017 Episodic Open wounds of extremities (2 sources) Unspecified open wound, left ankle, initial encounter; Translations: [Unspecified open wound, left ankle, initial encounter] Onset: 04-11-2017 Episodic Other lower respiratory disease (2 sources) Shortness of breath; Translations: [Shortness of breath] Onset: 11-16-2017 Episodic Other non-traumatic joint disorders (2 sources) Pain in unspecified joint; Translations: [Pain in unspecified joint] Onset: 11-16-2017 Episodic Skin and subcutaneous tissue infections (4 sources) Cellulitis of left lower limb; Translations: [Local infection of the skin and subcutaneous tissue, unspecified] Onset: 04-11-2017 Episodic Viral infection (2 sources) Viral infection, unspecified; Translations: [Viral infection, unspecified] Onset: 11-16-2017 Episodic Results Test Name Value Interpretation Reference Range Facil ity Encounters Encounter Date Encounter Type Care Provider Facility Start: 11-16-2017 Emergency department patient visit Adam Strong [facility] Start: 10-30-2017 Ambulatory RIMA CHEN [facility] Start: 04-11-2017 Ambulatory Basilio Pierre [facility] Payers Date Payer Category Payer Policy ID Unknown Summary Purpose Family History No Family History Records FoundNo Family History Records Found Advance Directives No Advanced Directives Records FoundNo Advanced Directives Records Found Additional Source Comments INFORMATION SOURCE (unrecogn ized section and content) DATE CREATED AUTHOR AUTHOR'S ORGANIZ ATION 12/21/2018 [facility] FOR RECORDS PERTAINING TO PATIENTS WHO ARE OR HAVE BEEN ENROLLED IN A CHEMICAL DEPENDENCY/SUBSTANCEABUSE PROGRAM, SOME INFORMATION MAY BE OMITTED. This clinical summary was aggregated from multiple sources. Caution should be exercised in using it in the provision of clinical care. This summary normalizes information from multiple sources, and as a consequence, information in this document may materially change the coding, format and clinical context of patient data. In addition, data may be omitted in some cases. CLINICAL DECISIONS SHOULD BE BASED ON THE PRIMARY CLINICAL RECORDS. [facility] [employer] [facility]. provides no warranty or guarantee of the accuracy or completeness of information in this document.
[2023-10-24 08:57] LABS: Progesterone Level 0.55 ng/mL (See Comment)
== END | disposition home or self-care (01) ==
LOC: PAVLAB 08:12
PROVIDERS: PCP Family Medicine; Referring Provider Nurse Practitioner Women's Health; Visit Provider Nurse Practitioner Women's Health
DX: N97.0 Female infertility associated with anovulation (principal)
CPT/HCPCS: 36415; 84144

== ENCOUNTER → 2023-12-05 | Outpatient (CLI) | payer BC, SELFPAY ==
[2023-12-05 09:38] LABS: Progesterone Level 0.49 ng/mL (See Comment)
== END | disposition home or self-care (01) ==
LOC: PAVLAB 08:38
PROVIDERS: PCP Family Medicine; Referring Provider Nurse Practitioner Women's Health; Visit Provider Nurse Practitioner Women's Health
DX: N97.0 Female infertility associated with anovulation (principal)
CPT/HCPCS: 36415; 84144

== ENCOUNTER → 2024-01-14 | Outpatient (CLI) | payer BC, SELFPAY ==
[2024-01-15 04:18] LABS: PROGESTERONE 0.1 ng/mL (.)
== END | disposition home or self-care (01) ==
LOC: PAVLAB 09:05
PROVIDERS: PCP Family Medicine; Referring Provider Nurse Practitioner Women's Health; Visit Provider Nurse Practitioner Women's Health
DX: N92.6 Irregular menstruation, unspecified (principal)
CPT/HCPCS: 36415; 84144

== ENCOUNTER → 2024-02-28 | Outpatient (CLI) | payer BC, SELFPAY ==
[2024-02-29 08:12] LABS: PROGESTERONE 7.7 ng/mL (.)
== END | disposition home or self-care (01) ==
LOC: LAB 08:41
PROVIDERS: PCP Family Medicine; Referring Provider Nurse Practitioner Women's Health; Visit Provider Nurse Practitioner Women's Health
DX: N92.6 Irregular menstruation, unspecified (principal)
CPT/HCPCS: 36415; 84144

== ENCOUNTER → 2025-01-14 | Outpatient (CLI) | payer BC, SELFPAY ==
[2025-01-14 11:04] LABS: Glucose GTT- Fasting 92 mg/dL (70-99)
[2025-01-14 11:46] LABS: ALB/GLOB Ratio 1.6 RATIO (0.9-2.4); AST(SGOT) 19 U/L (<=31); Alanine Aminotransfer ALT/SGPT 20 U/L (<=34); Albumin, Serum 4.7 g/dL (3.5-5.0); Alkaline Phosphatase 90 U/L (35-104); Anion Gap 10 (5-15); BUN 12 mg/dL (4-19); BUN/Creat Ratio 19.1 RATIO (10-20); Calcium,Total 9.6 mg/dL (7.6-11.0); Carbon Dioxide 22.4 mmol/L (21.0-32.0); Chloride 102 mmol/L (98-108); Creatinine, Serum 0.62 mg/dL (0.70-1.20); EST Glomerular Filtration Rate 123 (>60); Glucose 91 mg/dL (70-99); Potassium 3.8 mmol/L (3.3-5.1); Protein, Total 7.7 g/dL (5.9-8.4); Sodium Level 135 mmol/L (133-145)
[2025-01-14 12:12] LABS: Cholesterol 277 mg/dL (<=200); High Density Lipoprotein 47 mg/dL; Low Density Lipoprotein Calc. 197 mg/dL; Triglycerides 162 mg/dL; Very Low Density Lipoprotein 32 mg/dL (5-40); cholesterol:hdl ratio screen 5.87
[2025-01-14 12:19] LABS: CORTISOL AM 3.63 ug/dL (6.02-18.40); Free T3 3.3 pg/mL (2.18-3.98); Vitamin B12 534 pg/mL (180-914); Vitamin D,25 Hydroxy 24.9 ng/mL (30-100)
[2025-01-14 12:25] LABS: Hematocrit 41.9 % (37-47); Hemoglobin 14.1 g/dL (12.0-15.0); Mean Corp Hgb Conc 33.7 g/dL (32-36); Mean Corpuscular Hgb 30.2 pg (27.0-32.0); Mean Corpuscular Volume 89.7 fL (81-99); Mean Platelet Vol. 9.4 fl (6.2-12.0); Platelet Count 242 K/mm3 (150-450); RBC Distribution Width SD 39.2 fl (35.1-43.9); Red Blood Count 4.67 M/mm3 (4.2-5.4); White Blood Count 4.7 K/mm3 (4.4-11.0)
[2025-01-14 13:15] LABS: Glucose GTT-30 minutes 137 mg/dL (110-170)
[2025-01-14 13:16] LABS: Glucose GTT- 1 Hour 149 mg/dL (120-170)
[2025-01-14 14:30] LABS: Glucose GTT- 2 Hour 141 mg/dL (70-120)
[2025-01-15 05:07] LABS: HOMOCYSTEINE 5.6 umol/L (0.0-14.5)
== END | disposition home or self-care (01) ==
LOC: LAB 10:07
PROVIDERS: PCP Family Medicine; Referring Provider Obstetrics & Gynecology; Visit Provider Obstetrics & Gynecology
DX: E28.2 Polycystic ovarian syndrome (principal); E55.9 Vitamin D deficiency, unspecified; Z13.220 Encounter for screening for lipoid disorders; E03.9 Hypothyroidism, unspecified
CPT/HCPCS: 36415; 80053; 80061; 82306; 82533; 82607; 82627; 82746; 82951; 82952; 83090; 83525; 84146; 84402; 84403; 84432; 84439; 84443; 84480; 84481; 85027; 86376; 86800; 82626

== ENCOUNTER → 2025-03-20 | Outpatient (CLI) | payer BC, SELFPAY ==
[2025-03-20 09:47] LABS: CORTISOL AM 16.50 ug/dL (6.02-18.40); Free T3 2.7 pg/mL (2.18-3.98); Glucose 86 mg/dL (70-99); T3 Total - Triiodothyronine 1.05 ng/mL (0.80-2.00); Vitamin D,25 Hydroxy 53.9 ng/mL (30-100)
[2025-03-21 04:07] LABS: PROGESTERONE 7.9 ng/mL (.)
== END | disposition home or self-care (01) ==
LOC: LAB 07:38
PROVIDERS: PCP Family Medicine; Referring Provider Obstetrics & Gynecology; Visit Provider Obstetrics & Gynecology
DX: E27.40 Unspecified adrenocortical insufficiency (principal); E28.2 Polycystic ovarian syndrome; E55.9 Vitamin D deficiency, unspecified; E07.9 Disorder of thyroid, unspecified; R73.03 Prediabetes
CPT/HCPCS: 36415; 82024; 82306; 82533; 82947; 83036; 83525; 84144; 84439; 84443; 84480; 84481

== ENCOUNTER → 2025-04-22 | Outpatient (CLI) | payer BC, SELFPAY ==
[2025-04-22 09:45] LABS: T3 Total - Triiodothyronine 1.01 ng/mL (0.80-2.00)
[2025-04-23 04:07] LABS: PROGESTERONE <0.1 ng/mL (.)
== END | disposition home or self-care (01) ==
PROVIDERS: PCP Family Medicine; Referring Provider Obstetrics & Gynecology; Visit Provider Obstetrics & Gynecology
DX: N91.2 Amenorrhea, unspecified (principal); E03.9 Hypothyroidism, unspecified
CPT/HCPCS: 36415; 84144; 84480

== ENCOUNTER → 2025-07-08 | Outpatient (CLI) | payer BC, SELFPAY ==
[2025-07-08 10:01] LABS: hCG Titer Quant., Serum < 1 mIU/mL (<9 non-preg)
[2025-07-09 08:09] LABS: PROGESTERONE 0.5 ng/mL (.)
== END | disposition home or self-care (01) ==
PROVIDERS: PCP Family Medicine; Referring Provider Obstetrics & Gynecology; Visit Provider Obstetrics & Gynecology
DX: N81.2 Incomplete uterovaginal prolapse (principal)
CPT/HCPCS: 36415; 82670; 84144; 84702

== ENCOUNTER → 2025-08-13 | Outpatient (CLI) | payer BC, SELFPAY ==
[2025-08-13 09:38] LABS: Hematocrit 41.5 % (37-47); Hemoglobin 14.2 g/dL (12.0-15.0); Mean Corp Hgb Conc 34.2 g/dL (32-36); Mean Corpuscular Volume 86.8 fL (81-99); Mean Platelet Vol. 8.5 fl (6.2-12.0); Platelet Count 314 K/mm3 (150-450); RBC Distribution Width CV 11.9 % (11.6-14.6); RBC Distribution Width SD 38.1 fl (35.1-43.9); Red Blood Count 4.78 M/mm3 (4.2-5.4); White Blood Count 5.8 K/mm3 (4.4-11.0)
[2025-08-13 10:20] LABS: AST(SGOT) 15 U/L (<=31); Alanine Aminotransfer ALT/SGPT 16 U/L (<=34); Albumin, Serum 4.5 g/dL (3.5-5.0); Alkaline Phosphatase 71 U/L (35-104); Anion Gap 13 (5-15); BUN 14 mg/dL (4-19); BUN/Creat Ratio 20.5 RATIO (10-20); Calcium,Total 9.7 mg/dL (7.6-11.0); Carbon Dioxide 21.3 mmol/L (21.0-32.0); Chloride 104 mmol/L (98-108); Globulin 2.7 g/dL (2.2-4.2); Glucose 92 mg/dL (70-99); Potassium 4.0 mmol/L (3.3-5.1)
[2025-08-13 10:21] LABS: Ferritin 183 ng/mL (22-378); Follicle Stimulating Hormone 12.6 mIU/mL; Free T3 3.1 pg/mL (2.18-3.98); T3 Total - Triiodothyronine 1.07 ng/mL (0.80-2.00); Vitamin D,25 Hydroxy 62.5 ng/mL (30-100)
== END | disposition home or self-care (01) ==
LOC: PAVLAB 09:14
PROVIDERS: PCP Family Medicine; Referring Provider Obstetrics & Gynecology; Visit Provider Obstetrics & Gynecology
DX: E28.2 Polycystic ovarian syndrome (principal); L70.9 Acne, unspecified; E55.9 Vitamin D deficiency, unspecified; E03.9 Hypothyroidism, unspecified; E27.40 Unspecified adrenocortical insufficiency; R73.03 Prediabetes; Z13.228 Encounter for screening for other metabolic disorders
CPT/HCPCS: 36415; 80053; 82306; 82627; 82670; 82728; 83001; 83002; 83525; 84403; 84439; 84443; 84480; 84481; 85027; 82626